=== PATIENT | female | born 1990 | race African-American/Black ===

== ENCOUNTER 2020-04-07 04:10 | Inpatient (IN) | payer OTHER ==
[2020-04-07] MEDS ORDERED: ELECTROLYTE-148 SOLN 1,000 ML IV ONE (05:00)
[2020-04-07] MEDS ORDERED: AMPICILLIN - 2 GM in SODIUM CHLORIDE 100 ML IVPB ONE (05:15)
[2020-04-07] MEDS ORDERED: AMPICILLIN SODIUM 2 GM VIAL ONE (05:27)
[2020-04-07 05:37] LABS: BASO % 0.7 % (0-2.0); EOS % 0.4 % (0-4.5); HEMATOCRIT 34.5 % (32.4-45.2); HEMOGLOBIN 11.2 GM/dL (10.7-15.3); LYMPH % 29.5 % (8-40); MCH 27.4 pg (25.7-33.7); MCHC 32.6 g/dl (32.0-36.0); MONO % 7.9 % (3.8-10.2); NEUT % 61.5 % (42.8-82.8); PLATELET COUNT 199 K/MM3 (134-434); RDW 21.7 % (11.6-15.6); WHITE BLOOD COUNT 8.4 K/mm3 (4.0-10.0)
[2020-04-07 05:38] VITALS: BMI 25.0
[2020-04-07 05:48] LABS: INR 1.02 (0.83-1.09)
[2020-04-07 05:51] LABS: ACTIVATED PTT 24.8 SECONDS (25.2-36.5)
[2020-04-07 05:57] LABS: BLOOD UREA NITROGEN 6.8 mg/dL (7-18); CALCIUM 8.6 mg/dL (8.5-10.1); CREATININE 0.5 mg/dL (0.55-1.3); POTASSIUM 3.8 mmol/L (3.5-5.1)
[2020-04-07] MEDS ORDERED: PROMETHAZINE HCL 25 MG/1 ML VIAL IVPB ONE (06:50)
[2020-04-07] MEDS ORDERED: BUTORPHANOL TARTRATE 1 MG/ML VIAL IVPB ONE (06:50)
--- NOTE | 2020-04-07 06:56 | HP ---
Past Medical History - Primary Care Physician PCP:: Hayder Asher - Admission Chief Complaint: Lower abdominal pain History of Present Illness: 29 yo , ROBERT 04/07/20, EGA 40 weeks, presented with the above, No bleeding or leakage of fluid per vagina. History Source: Patient Limitations to Obtaining History: No Limitations - Past Medical History ...: 3 ...Para: 1 ...Term: 1 ...: 0 ...Spon : 1 ...Induced : 0 ...Living Children: 1 ...Multiple Gestation: 0 ... Weeks Gestation by Dates: 40.0 ...EDC by Dates: 04/07/20 Heme/Onc: Yes: Anemia - Past Surgical History Hx Myomectomy: No Hx Transabdominal Cerclage: No - Smoking History Smoking history: Never smoked Have you smoked in the past 12 months: No - Alcohol/Substance Use Hx Alcohol Use: No History of Substance Use: reports: None - Social History Do you think of yourself as: Straight/Heterosexual History of Recent Travel: No Home Medications - Allergies Allergies/Adverse Reactions: Allergies Allergy/AdvReac Type Severity Reaction Status Date / Time No Known Allergies Allergy Verified 04/07/20 04:30 - Home Medications Home Medications: Ambulatory Orders Vitamins (Sjr) - 1 tab PO DAILY 04/06/20 Ferrous Sulfate [Feosol] 325 mg PO BID 04/07/20 Family Medical History Family History: Denies Review of Systems - Review of Systems Constitutional: reports: No Symptoms Eyes: reports: No Symptoms HENT: reports: No Symptoms Neck: reports: No Symptoms Cardiovascular: reports: No Symptoms Respiratory: reports: No Symptoms Gastrointestinal: reports: No Symptoms Genitourinary: reports: No Symptoms Breasts: reports: No Symptoms Reported Musculoskeletal: reports: No Symptoms Integumentary: reports: No Symptoms Neurological: reports: No Symptoms Endocrine: reports: No Symptoms Hematology/Lymphatic: reports: No Symptoms Psychiatric: reports: No Symptoms Physical Exam - Maternity Vital Signs: Vital Signs Temperature 98.6 F 04/07/20 06:08 Pulse Rate 85 04/07/20 06:08 Respiratory Rate 18 04/07/20 06:08 Blood Pressure 108/78 04/07/20 06:08 O2 Sat by Pulse Oximetry (%) Constitutional: Yes: Well Nourished Eyes: Yes: WNL HENT: Yes: WNL Neck: Yes: WNL Cardiovascular: Yes: WNL Lungs: Clear to auscultation - Abdominal Exam/OB Fundal Height: 39 Number of Fetuses: Single Presentation: Vertex Contractions: Yes Regularity: Regular Intensity: Mild/Mod Monitor Mode: External Heart Rate (range): 135 Heart Rate Location: [facility] Category: I Accelerations: Uniform Decelerations: None - Vaginal Exam/OB Vaginal Bleeding: No Dilatation (cm): 5 Effacement (%): 80 Amniotic Membrane Status: Intact Presentation: Vertex/Position Station: -2 - Physical Exam Musculoskeletal: Yes: WNL Extremities: Yes: WNL Edema: No Integumentary: Yes: WNL ...Motor Strength: WNL Psychiatric: Yes: WNL - Labs Lab Results: CBC, BMP 04/07/20 05:10 04/07/20 05:10 Hemorrhage Risk Assessment - Risk Factors Medium Risk Factors: Yes: None High Risk Factors: Yes: None Risk Score: 1 Risk Level: Medium Risk Problem List - Problems (1) 40 weeks gestation of Code(s): Z3A.40 - 40 WEEKS GESTATION OF Assessment/Plan Full term gestation in labor Admit L and D for management
[2020-04-07] MEDS ORDERED: BUTORPHANOL TARTRATE 2 MG/ML VIAL ONE (07:17)
[2020-04-07] MEDS ORDERED: PROMETHAZINE HCL 25 MG/1 ML VIAL ONE (07:18)
[2020-04-07] MEDS ORDERED: BUTORPHANOL TARTRATE 1 MG/ML VIAL ONE ×2 (07:19)
--- NOTE | 2020-04-07 07:37 | PN ---
Progress Note (short form) - Note Progress Note: Full term gestation in labor VSS, afebrile EFM - Baseline 140/min, moderate variability, accelerations, no deceleration [place] - q 5 Pelvic - 6cm/100%/-1/vertex. AROM light meconium stained fluid Plan - Anticipate vaginal delivery Problem List - Problems (1) 40 weeks gestation of Code(s): Z3A.40 - 40 WEEKS GESTATION OF
[2020-04-07 08:42] LABS: ANISOCYTOSIS 2+; MACROCYTOSIS 2+; PLATELET ESTIMATE NORMAL
--- NOTE | 2020-04-07 08:55 | PN ---
Progress Note (short form) - Note Progress Note: Received sign out S/P AROM, Meconium GBS positive, receiving ampicillin Informed consent obtained.Also discussed possibility of csection. patient understands, verbalized understanding and agreed FHR- 140,Moderate variability, positive acceleration, no deceleration, cat1 Received stadol, minimal variability [place]- irregular Discussed possibility of pitocin continue ampicillin Anticipate vaginal delivery
[2020-04-07] MEDS: AMPICILLIN - 1 GM in SODIUM CHLORIDE 100 ML IVPB SCH ×2 (09:30→16:06)
[2020-04-07] MEDS ORDERED: AMPICILLIN SODIUM 1 GM VIAL ONE (09:32)
[2020-04-07] MEDS ORDERED: LIDOCAINE HCL 1% PRESERVATIVE FREE - 30ML VIAL ONE (11:01)
[2020-04-07] MEDS ORDERED: OXYTOCIN 20 UNITS in 0.9% NS 20 UNIT/1,000 ML INFUS.BAG IV ONE ×2 (11:01→14:22)
--- NOTE | 2020-04-07 11:05 | PN ---
Progress Note (short form) - Note Progress Note: Patient examined FHR- 140, moderate variability, positive accelerations, no decelerations, cat1 [place] irregular VE 9cm/90%/+1 anticipate vaginal delivery
--- NOTE | 2020-04-07 13:56 | PN ---
Delivery - Delivery Type of Anesthesia: Local Episiotomy/Laceration: None, Midline, Perineal Extension/lac, 1st degree EBL (cc): 300 Delivery, Single - Stages of Labor Date of Delivery: 04/07/20 Date Placenta Delivered: 04/07/20 Placenta: Yes: Spontaneous - Condition of Gender: Female Position: Left, OP - Feeding Plan Initial Plan: Elected not to breastfeed exclusively throughout hospitalization Remarks - Remarks Remarks: Patient fully dilated, having urge to push, Spontaneous vaginal delivery of a baby girl atraumatically, Nuchal cord x1, reduced over the head, baby delivered, nose and mouth suctioned, cord clamped and cut, cord gases sent, cord blood sent. Pitocin started. Placenta delivered completely and spontaneously. Hemostasis confirmed. Transfer to maternity when stable.First degree midline perineal laceration repaired with 2.0 chromic.
[2020-04-07 14:06] LABS: CORD BASE EXCESS -3.7 mmol/L (0-2); CORD HCO3 21.9 mmHg (20-29); CORD PCO2 41.5 mmHg (30-78); CORD pH 7.34 (7.14-7.44)
[2020-04-07 14:08] LABS: CORD HCO3 25.8 mmHg (20-29); CORD PCO2 58.2 mmHg (30-78); CORD pH 7.265 (7.14-7.44)
[2020-04-07] MEDS ORDERED: ACETAMINOPHEN 325 MG TABLET (FP) PO PRN (14:18)
[2020-04-07] MEDS ORDERED: METHYLERGONOVINE MALEATE 0.2 MG/1 ML AMP IM PRN (14:18)
[2020-04-07] MEDS ORDERED: BENZOCAINE 28 GM HEMORRHOIDAL OINTMENT TP PRN (14:18)
[2020-04-07] MEDS ORDERED: BENZOCAINE 20% 57 GM BOTTLE TP PRN (14:18)
[2020-04-07] MEDS ORDERED: WITCH HAZEL 50% (TUCKS) 40 PAD/JAR PAD TP PRN (14:18)
[2020-04-07] MEDS ORDERED: BISACODYL 10 MG SUPP.RECT RC PRN (14:18)
[2020-04-07] MEDS ORDERED: IBUPROFEN 600 MG TABLET (FP) PO PRN (14:18)
[2020-04-07] MEDS ORDERED: OXYTOCIN 30 UNITS in 0.9% NS 30 UNIT/500 ML INFUS.BAG IVPB SCH (14:30)
--- NOTE | 2020-04-08 06:52 | PN ---
Progress Note (short form) - Note Progress Note: Patient without complaints Tolerating diet minimal lochial flow VS wnl Abdomen soft, uterus well contracted normal lochial flow no calf tenderness A/P PPD#1 s/p vaginal delivery desires to go home Discharge this PM CBC pending
--- NOTE | 2020-04-08 06:58 | DS ---
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: Vital Signs Temperature 98.5 F 04/08/20 06:00 Pulse Rate 76 04/08/20 06:00 Respiratory Rate 18 04/08/20 06:00 Blood Pressure 92/51 L 04/08/20 06:00 O2 Sat by Pulse Oximetry (%) 100 04/08/20 06:00 Constitutional: Yes: Well Nourished HENT: Yes: WNL Cardiovascular: Yes: WNL Respiratory: Yes: WNL Labs: CBC, BMP 04/07/20 05:10 04/07/20 05:10 Delivery - Delivery Type of Anesthesia: Local Episiotomy/Laceration: None, Midline, Perineal Extension/lac, 1st degree EBL (cc): 300 Delivery, Single - Stages of Labor Date 1st Stage Initiatied: 04/07/20 Time 1st Stage Initiated: 01:00 Date 2nd Stage Initiated: 04/07/20 Time 2nd Stage Initiated: 07:30 Date of Delivery: 04/07/20 Time of Delivery: 13:22 Time Placenta Delivered: 13:26 Placenta: Yes: Spontaneous - 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 Follow up at health center in 1 week To ER if fever >100.4, severe vaginal bleeding, severe abdominal pain or any unusual symptoms Discharge Summary Problems reviewed: Yes Reason For Visit: LABOR ADMIT Current Active Problems 40 weeks gestation of (Acute) Procedures: Principal: Hospital Course: Patient s/p vaginal delivery tolerating diet, uterus well contracted, normal lochial flow no calf tenderness, discharge home with instructions. Plan of Treatment: Follow up at health center on Tuesday04/11/20 Return to ER if fever>100.4, seever vaginal bleeding, severe abdominal pain or any unusual symptoms Goals: Follow up at health center on tuesday04/11/20 Condition: Stable - Instructions Diet, Activity, Other Instructions: Regular - Home Medications Comprehensive Discharge Medication List: Ambulatory Orders Vitamins (Sjr) - 1 tab PO DAILY 04/06/20 Ferrous Sulfate [Feosol] 325 mg PO BID 04/07/20
[2020-04-08] MEDS ORDERED: IBUPROFEN 600 MG TABLET (FP) PO PRN (07:02)
[2020-04-08 08:03] LABS: BASO % 0.4 % (0-2.0); EOS % 0.2 % (0-4.5); HEMATOCRIT 32.3 % (32.4-45.2); HEMOGLOBIN 10.3 GM/dL (10.7-15.3); LYMPH % 19.8 % (8-40); MCHC 31.9 g/dl (32.0-36.0); MEAN CELL VOLUME 84.9 fl (80-96); MEAN PLT VOLUME 8.8 fl (7.5-11.1); MONO % 5.8 % (3.8-10.2); NEUT % 73.8 % (42.8-82.8); PLATELET COUNT 193 K/MM3 (134-434); RDW 21.8 % (11.6-15.6); WHITE BLOOD COUNT 14.6 K/mm3 (4.0-10.0)
[2020-04-08 09:00] VITALS: BP 96/64; PULSE 94; TEMP 98.1
[2020-04-08] MEDS ORDERED: PRENATAL VITAMINS W/ FOLIC ACID TABLET (FP) PO SCH ×2 (10:00)
[2020-04-08] MEDS ORDERED: SENNOSIDES/DOCUSATE COMBO (SENNA PLUS) TABLET (UD) PO PRN (22:00)
== END 2020-04-08 17:15 | disposition home or self-care (01) | DRG 560 ==
LOC: JDEL 04:10 → JLDR 05:00 → J3W 15:54
PROVIDERS: ADMIT Obstetrics & Gynecology; ATTEND Obstetrics & Gynecology
PROC: 10E0XZZ Delivery of Products of Conception, External Approach (ICD-10-PCS; principal; 2020-04-07)
PROC: 0W8NXZZ Division of Female Perineum, External Approach (ICD-10-PCS; 2020-04-07)
PROC: 0HQ9XZZ Repair Perineum Skin, External Approach (ICD-10-PCS; 2020-04-07)
PROC: 10907ZC Drainage of Amniotic Fluid, Therapeutic from Products of Conception, Via Natural or Artificial Opening (ICD-10-PCS; 2020-04-07)
DX: O48.0 Post-term pregnancy (principal); O70.0 First degree perineal laceration during delivery; O99.824 Streptococcus B carrier state complicating childbirth; O77.0 Labor and delivery complicated by meconium in amniotic fluid; Z3A.40 40 weeks gestation of pregnancy; Z37.0 Single live birth
CPT/HCPCS: 36415; 36600; 59409; 80048; 82803; 85025; 85610; 85730; 86780; 86850; 86900; 86901; 87389; U0003